=== PATIENT | male | born 1965 | race Caucasian/White ===

== ENCOUNTER 2017-04-17 12:31 | Emergency (ER) | payer OTHER ==
[~2017-04-17] VITALS: Ht 190.5 cm; Wt 127.0 kg
[~2017-04-17 12:31] MED LIST: ASPI-482 PO; ATOR10TA60 PO; CETI10TA30 PO; CHOL10003 PO; GLIP-112 PO; INSU100V13 SQ; LOSA1TAB17 PO; METF500T4 PO; PIOG30TA3 PO; RANI150C PO
[2017-04-17 12:53] VITALS: BP 123/94
[2017-04-17] MEDS ORDERED: AMOX1TAB61 PO (13:06)
--- NOTE | 2017-04-17 13:06 | PHYS DOC ---
Past Medical History Past Medical History: Diabetes-Type I, High Cholesterol, Hypertension Past Surgical History: Other Additional Past Surgical Histo: R Shoulder Alcohol Use: Occasionally Drug Use: None Adult General Chief Complaint Chief Complaint: FEVER HPI HPI Patient is a 51 year old male presents to the emergency department stating that he has had right frontal and maxillary sinus pressure for the last 2 weeks. He states that he had been on amoxicillin during that time although that had not helped with any of the symptoms. He still states that he has quite a bit of pressure. He denies any drainage or discharge. He denies any nasal congestion at this time. Review of Systems Review of Systems Constitutional: Denies fever or chills [] Eyes: Denies change in visual acuity, redness, or eye pain [] HENT: Denies nasal congestion or sore throat. Complaint of right frontal and maxillary sinus tenderness Respiratory: Denies cough or shortness of breath [] Cardiovascular: No additional information not addressed in HPI [] GI: Denies abdominal pain, nausea, vomiting, bloody stools or diarrhea [] : Denies dysuria or hematuria [] Musculoskeletal: Denies back pain or joint pain [] Integument: Denies rash or skin lesions [] Neurologic: Denies headache, focal weakness or sensory changes [] Endocrine: Denies polyuria or polydipsia [] Allergies Allergies Allergies Coded Allergies Type Severity Reaction Last Updated Verified No Known Drug Allergies 05/15/14 No Physical Exam Physical Exam Constitutional: Well developed, well nourished, no acute distress, non-toxic appearance. [] HENT: Normocephalic, atraumatic, bilateral external ears normal, oropharynx moist, no oral exudates, nose normal. Bilateral tympanic membranes appear to be normal. Throat with no erythematous no drainage no exudate noted. Patient with right frontal and maxillary sinus tenderness. Right ear without redness however does have an effusion. Eyes: PERRLA, EOMI, conjunctiva normal, no discharge. [] Neck: Normal range of motion, no tenderness, supple, no stridor. [] Cardiovascular:Heart rate regular rhythm, no murmur [] Lungs & Thorax: Bilateral breath sounds clear to auscultation [] Skin: Warm, dry, no erythema, no rash. [] Back: No tenderness Extremities: No tenderness, no cyanosis, no clubbing, ROM intact, no edema. [] Neurologic: Alert and oriented X 3, normal motor function, normal sensory function, no focal deficits noted. [] Psychologic: Affect normal, judgement normal, mood normal. [] EKG EKG [] Radiology/Procedures Radiology/Procedures [] Course & Med Decision Making Course & Med Decision Making Pertinent Labs and Imaging studies reviewed. (See chart for details) Patient will be discharged home on Augmentin. Recommended Sudafed and Mucinex DM [id number] to help with congestion and sure. Patient agrees with discharge instructions, treatment regimens and follow-up recommendations. Signs and symptoms to return back to emergency department as been provided. All questions were answered for the patient at bedside. Also recommended plenty of fluids. Dragon Disclaimer Dragon Disclaimer This electronic medical record was generated, in whole or in part, using a voice recognition dictation system. Departure Departure Impression: Primary Impression: Sinusitis Disposition: HOME, SELF-CARE Condition: STABLE Referrals: NO PCP (PCP) Patient Instructions: Sinusitis, [id number] Additional Instructions: Activity as tolerated. Tylenol or ibuprofen for pain and discomfort. Mucinex DM as prescribed by theater usher [id number]. Sudafed as prescribed by theater usher [id number]. Antibiotic's as prescribed. Drink plenty of fluids. Follow-up to primary care physician in the next week. Return back to emergency prior signs symptoms of become worse. Scripts Amoxicillin/Potassium Clav (AUGMENTIN 875-125 TABLET) 1 Each Tablet 1 TAB PO BID, #20 TAB Prov: KENNEDY CHENEY APRN 04/17/17 KENNEDY CHENEY APRN Apr 17, 2017 13:06
== END 2017-04-17 13:15 | disposition home or self-care (01) ==
LOC: ER 12:31
DX: J32.9 Chronic sinusitis, unspecified (principal); E10.9 Type 1 diabetes mellitus without complications; E78.00 Pure hypercholesterolemia, unspecified; I10 Essential (primary) hypertension
CPT/HCPCS: 99283

== ENCOUNTER 2019-09-21 23:34 | Emergency (ER) | payer OTHER ==
[~2019-09-21] VITALS: Ht 190.5 cm; Wt 127.0 kg
[~2019-09-21 23:34] MED LIST changes: +AMOX1TAB61 PO; -GLIP-112 PO; +GLIP10TA24 PO; -LOSA1TAB17 PO; +LOSA1TAB22 PO; +METF500T16 PO; -METF500T4 PO; -PIOG30TA3 PO; +PIOG30TA62 PO
[2019-09-22 00:07] LABS: BASO % 1 % (0-3); EOS # 0.1 x10^3/uL (0.0-0.7); EOS % 3 % (0-3); HEMATOCRIT 45.3 % (39.0-53.0); HEMOGLOBIN 15.6 g/dL (13.0-17.5); LYMPH % 30 % (24-48); MEAN CORPUSCULAR HEMOGLOBIN 30 pg (25-35); MEAN CORPUSCULAR HGB CONC 35 g/dL (31-37); MEAN CORPUSCULAR VOLUME 87 fL (79-100); MONO # 0.4 x10^3/uL (0.0-1.1); MONO % 11 % (0-9); NEUT # 1.8 x10^3/uL (1.8-7.7); NEUT % 55 % (31-73); PLATELET COUNT 219 x10^3/uL (140-400); RED BLOOD COUNT 5.18 x10^6/uL (4.30-5.70); RED CELL DISTRIBUTION WIDTH 12.4 % (11.5-14.5); WHITE BLOOD COUNT 3.2 x10^3/uL (4.0-11.0)
[2019-09-22] MEDS ORDERED: IPRATRPIUM/ALBUTEROL 0.5/2.5MG 3 ML NEBU. NEB ONE (00:15)
[2019-09-22 00:47] LABS: CALCIUM 8.3 mg/dL (8.5-10.1); CREATININE 1.1 mg/dL (0.7-1.3); GFR 69.5; POTASSIUM 3.1 mmol/L (3.5-5.1)
[2019-09-22 00:54] LABS: ALBUMIN 3.1 g/dL (3.4-5.0); ALBUMIN/GLOBULIN RATIO 0.9 (1.0-1.7); TOTAL BILIRUBIN 0.3 mg/dL (0.2-1.0); TOTAL PROTEIN 6.4 g/dL (6.4-8.2)
[2019-09-22 01:04] LABS: INFLUENZA A PATIENT NEGATIVE (NEGATIVE)
[2019-09-22 01:05] LABS: INFLUENZA B PATIENT POSITIVE (NEGATIVE)
[2019-09-22 01:06] VITALS: BP 139/69
[2019-09-22] MEDS ORDERED: POTASSIUM CHLORIDE 20 MEQ TABLET.ER. PO ONE (01:15)
[2019-09-22] MEDS ORDERED: ALBU2.5V8 IH (01:18)
[2019-09-22] MEDS ORDERED: GUAI12003 PO (01:18)
[2019-09-22] MEDS ORDERED: AZIT1PAC PO (01:18)
[2019-09-22] MEDS ORDERED: PRED50TA PO (01:18)
--- NOTE | 2019-09-22 01:19 | PHYS DOC ---
Past Medical History Past Medical History: Diabetes-Type I, High Cholesterol, Hypertension Past Surgical History: Other Additional Past Surgical Histo: R Shoulder Alcohol Use: Occasionally Drug Use: None Adult General Chief Complaint Chief Complaint: SHORTNESS OF BREATH HPI HPI Patient is a 54 year old MALE who presents with nonproductive cough 10 days with shortness of breath, chest pain, rhinorrhea and subjective fever. Reports occasional wheezing. No history of asthma, COPD or chronic lung disease. Been evaluated for symptoms prior to today's ED visits. Patient smokes occasional cigars. [] Review of Systems Review of Systems Review symptoms as per history of present illness. All other review symptoms are negative All other systems were reviewed and found to be within normal limits, except as documented in this note. Current Medications Current Medications Current Medications Medications (Trade) Dose Ordered Sig/Adraina Start Time Stop Time Status Last Admin Dose Admin Albuterol/ Ipratropium (Duoneb) 3 ml 1X ONCE 09/22/19 00:15 09/22/19 00:16 DC 09/22/19 00:17 3 ML Allergies Allergies Allergies Coded Allergies Type Severity Reaction Last Updated Verified No Known Drug Allergies 05/15/14 No Physical Exam Physical Exam Constitutional: Well developed, well nourished, no acute distress, non-toxic appearance. [] HENT: Normocephalic, atraumatic, bilateral external ears normal, oropharynx moist, no oral exudates, nose normal. [] Eyes: PERRLA, EOMI, conjunctiva normal, no discharge. [] Neck: Normal range of motion. [] Cardiovascular:Heart rate regular rhythm, no murmur [] Lungs & Thorax: Shows nonlabored, mildly coarse diminished breath sounds bilaterally[] Abdomen: Bowel sounds normal, soft, no tenderness. [] Skin: Warm, dry, no erythema, no rash. [] Back: No tenderness, no CVA tenderness. [] Extremities: No tenderness, no edema. [] Neurologic: Alert and oriented X 3, normal motor function, normal sensory function, no focal deficits noted. [] Psychologic: Affect normal, judgement normal, mood normal. [] Current Patient Data Vital Signs Vital Signs Date Time Temp Pulse Resp B/P (MAP) Pulse Ox O2 Delivery O2 Flow Rate FiO2 09/22/19 00:18 97 Room Air 09/21/19 23:45 98.0 79 19 142/80 (100) 98.0 Lab Values Laboratory Tests Test 09/21/19 23:50 09/22/19 00:30 09/22/19 00:40 White Blood Count 3.2 x10^3/uL (4.0-11.0) L Red Blood Count 5.18 x10^6/uL (4.30-5.70) Hemoglobin 15.6 g/dL (13.0-17.5) Hematocrit 45.3 % (39.0-53.0) Mean Corpuscular Volume 87 fL (79-100) Mean Corpuscular Hemoglobin 30 pg (25-35) Mean Corpuscular Hemoglobin Concent 35 g/dL (31-37) Red Cell Distribution Width 12.4 % (11.5-14.5) Platelet Count 219 x10^3/uL (140-400) Neutrophils (%) (Auto) 55 % (31-73) Lymphocytes (%) (Auto) 30 % (24-48) Monocytes (%) (Auto) 11 % (0-9) H Eosinophils (%) (Auto) 3 % (0-3) Basophils (%) (Auto) 1 % (0-3) Neutrophils # (Auto) 1.8 x10^3/uL (1.8-7.7) Lymphocytes # (Auto) 1.0 x10^3/uL (1.0-4.8) Monocytes # (Auto) 0.4 x10^3/uL (0.0-1.1) Eosinophils # (Auto) 0.1 x10^3/uL (0.0-0.7) Basophils # (Auto) 0.0 x10^3/uL (0.0-0.2) Sodium Level 137 mmol/L (136-145) Potassium Level 3.1 mmol/L (3.5-5.1) L Chloride Level 101 mmol/L (98-107) Carbon Dioxide Level 27 mmol/L (21-32) Anion Gap 9 (6-14) Blood Urea Nitrogen 11 mg/dL (8-26) Creatinine 1.1 mg/dL (0.7-1.3) Estimated GFR (Cockcroft-Gault) 69.5 BUN/Creatinine Ratio 10 (6-20) Glucose Level 301 mg/dL (70-99) H Calcium Level 8.3 mg/dL (8.5-10.1) L Total Bilirubin 0.3 mg/dL (0.2-1.0) Aspartate Amino Transferase (AST) 28 U/L (15-37) Alanine Aminotransferase (ALT) 27 U/L (16-63) Alkaline Phosphatase 80 U/L (46-116) Troponin I Quantitative 0.041 ng/mL (0.000-0.055) LW-Ecc-N-Type Natriuretic Peptide 194 pg/mL (0-124) H Total Protein 6.4 g/dL (6.4-8.2) Albumin 3.1 g/dL (3.4-5.0) L Albumin/Globulin Ratio 0.9 (1.0-1.7) L Influenza Type A Antigen Negative (NEGATIVE) Influenza Type B Antigen Positive (NEGATIVE) Laboratory Tests 09/21/19 23:50 Laboratory Tests 09/22/19 00:30 EKG EKG [ekg: REVIEWED] Radiology/Procedures Radiology/Procedures [cX-ray: Reviewed] Course & Med Decision Making Course & Med Decision Making Pertinent Labs and Imaging studies reviewed. (See chart for details) [Viral bronchitis, influenza B pos. Continue supportive care with PCP follow-up. Return precautions reviewed. Dragon Disclaimer Dragon Disclaimer This electronic medical record was generated, in whole or in part, using a voice recognition dictation system. Departure Departure Impression: Primary Impression: Influenza B Additional Impression: Bronchospasm Disposition: 01 HOME, SELF-CARE Condition: IMPROVED Referrals: NO PCP (PCP) Patient Instructions: Influenza, Adult Additional Instructions: Please take newly prescribed medications as directed and follow-up with your PCP in 2-3 days for reevaluation. Scripts Azithromycin (ZITHROMAX PACKET) 1 Gm Packet 1 PACKET PO ONCE, #1 PACKET Prov: CHARITY SOLORIO DO 09/22/19 Guaifenesin (MUCINEX) 1,200 Mg Tbmp.12hr 1 TAB PO BID for cough for 15 Days, #30 TAB 0 Refills Prov: CHARITY SOLORIO DO 09/22/19 Prednisone (PREDNISONE) 50 Mg Tablet 1 TAB PO DAILY, #5 TAB Prov: CHARITY SOLORIO DO 09/22/19 Albuterol Sulfate (PROAIR HFA INHALER) 8.5 Gm Hfa.aer.ad 2 PUFF IH PRN Q4-6HRS PRN for wheezing for 21 Days, #1 INHALER 0 Refills Prov: CHARITY SOLORIO DO 09/22/19 Problem Qualifiers CHARITY SOLORIO DO Sep 22, 2019 01:19
--- NOTE | 2019-09-22 04:36 | RAD ---
Chest AP portable at 2347: Reason for examination: Short of air. Comparison is made to previous study dated 05/15/2014. The heart size is normal. Mediastinum is unremarkable. Lung [place] are clear. There is some elevation of the right hemidiaphragm which is unchanged. No acute bony abnormalities are present. IMPRESSION: No acute cardiopulmonary disease evident. Electronically signed by: Cinthia Talley MD (09/22/2019 4:33 AM) [id number]
--- NOTE | 2019-09-22 06:24 | EKG ---
[facility] [address] [place] [address] Test Date: 2019-09-21 Test Time: 23:49:14 Pat Name: MARY ELLEN VIERA Department: Room: Gender: M Physical Therapy Technician: : 1965 Requested By: CHARITY SOLORIO Order Number: [id number] Reading MD: Measurements Intervals [place] Rate: 77 P: 0 [place]: 178 QRS: -8 QRSD: 112 T: 9 QT: 400 QTc: 455 Interpretive Statements SINUS RHYTHM LEFTWARD AXIS INCOMPLETE RIGHT BUNDLE BRANCH BLOCK OTHERWISE NORMAL ECG RI6.01 No previous ECG available for comparison
== END 2019-09-22 01:30 | disposition home or self-care (01) ==
LOC: ER 23:34
DX: J10.1 Influenza due to other identified influenza virus with other respiratory manifestations (principal); J98.01 Acute bronchospasm; E10.9 Type 1 diabetes mellitus without complications; E78.00 Pure hypercholesterolemia, unspecified; I10 Essential (primary) hypertension; F17.210 Nicotine dependence, cigarettes, uncomplicated
CPT/HCPCS: 36415; 71045; 80053; 83880; 84484; 85025; 87804; 93005; 94640; 99285; J7620